=== PATIENT | female | born 1955 | race Caucasian/White ===

== ENCOUNTER 2019-11-18 02:48 | Outpatient (CLI) | payer MEDICARE, OTHER, SELFPAY ==
[2019-11-18 18:16] LABS: SARS-CoV-2 RNA PCR Negative
== END 2019-11-18 02:49 | disposition home or self-care (01) ==
LOC: ANHCOVIDDT 02:48
PROVIDERS: PCP Family Medicine; Visit Provider Internal Medicine Critical Care Medicine
DX: Z01.812 Encounter for preprocedural laboratory examination (principal); Z20.828 Contact with and (suspected) exposure to other viral communicable diseases
CPT/HCPCS: 87635; C9803; U0003

== ENCOUNTER 2019-11-20 08:59 | Outpatient (CLI) | payer MEDICARE, OTHER, SELFPAY ==
--- NOTE | 2019-12-16 10:31 | WPDSLEEPSTUD ---
Sleep Study Date of Study: 11/20/19 Ordering Provider: Rich Panda MD Interpreting Physician: Arianna Eduardo MD Sleep Study Type: Polysomnogram Height: 1.75 m Weight: 112.491 kg Body Mass Index: 36.6 Neck Circumference: 38.1 cm Lyons: 7 Reason for Sleep Study History of obstructive sleep apnea, significant weight loss HST 06/15/2016 AHI 9.7 with moderate snoring and multiple oxygen desaturation with the lowest oxygen saturation of 81%, BMI was 36.6 Sleep History Demi Bear is a 64-year-old female who has a history of obstructive sleep apnea. She has been on CPAP which was successful. Since starting CPAP, she has lost 70 lb, she is exercising and eating a better diet. Her current settings felt too high, were uncomfortable and difficult to tolerate. Dr. Panda decreased her pressure to 5-9 cm in the several weeks before the test which improved her comfort during sleep. She has a family history with her twin sister also being treated for sleep apnea with CPAP. she occasionally snores and occasionally it was loud enough for others to complain about a but this has improved. She occasionally has trouble sleeping with a cold. She does not gasp for breath at night. She occasionally wakes up sweating excessively at night. She rarely notices her heart pounding or beating irregularly at night. She rarely falls asleep during the day, never involuntarily or while driving. She does not have loss of muscle tone with strong emotion. She does not have daytime difficulties due to excessive sleepiness. She does not feel paralyzed on waking or falling asleep and does not have vivid dreamlike scenes upon awakening or falling asleep. She has never for a to go to sleep. She denies nightmares. She rarely remembers her dreams. She frequently has racing thoughts. She never feels sad or depressed. She frequently has anxiety. She rarely has muscular tension. She occasionally notices parts of her body jerking, rarely kicks at night. She occasionally has crawling and aching feelings in her legs. She never has leg pain at night. She denies morning jaw pain. she has a mouth guard currently due to occasionally grind her teeth during sleep. She has never bothered by pain during the day, never is awakened by pain at night, never wakes up feeling stiff in the morning with sore achy muscles or pain in the neck and spine. She occasionally has dizziness, fatigue, constipation and she does use and acids regularly. Normal bedtime is between 8:00 p.m. and 9:00 p.m. taking an hour to fall asleep, typically waking 4-7 times at night, staying awake 15-30 minutes. She wakes up to use the bathroom, returns to bed without much difficulty falling asleep She wakes the morning at 5:00 a.m.. Weekend schedule is similar. She does not usually take naps. Most of the time she feels good in the morning. Habits: Never smoked tobacco. Caffeine 2 cups in the morning. No alcohol or recreational drugs. [facility] Past Medical History Medical History Cardiomegaly Chronic viral hepatitis C Cytomegaloviral disease Essential (primary) hypertension Ganglion cyst Ankle 1979 History of colonic diverticulitis Hypertensive heart disease without heart failure Left bundle branch block Obesity (BMI 30.0-34.9) Post-menopausal age 34 Shingles Squamous cell skin cancer Surgical History Surgical History H/O arthroscopy of knee 2013 H/O: hysterectomy 1977 Family History Family History Father Diabetes mellitus Hypertension Family history of elevated blood lipids Family history of cardiovascular disease Mother Family history of glaucoma Family history of gynecological problem Grandparent Hypertension Sibling Family history of malignant neoplasm of breast Social History Social History (Reviewed 12/16/19
[2019-12-16 11:02] VITALS: BMI 36.6
== END 2019-11-20 09:00 | disposition home or self-care (01) ==
LOC: ANHCSM 09:05
PROVIDERS: PCP Family Medicine; Visit Provider Otolaryngology
DX: G47.33 Obstructive sleep apnea (adult) (pediatric) (principal); B18.2 Chronic viral hepatitis C; B25.9 Cytomegaloviral disease, unspecified; I11.0 Hypertensive heart disease with heart failure; I50.9 Heart failure, unspecified; K57.30 Diverticulosis of large intestine without perforation or abscess without bleeding; E66.9 Obesity, unspecified
CPT/HCPCS: 95810

== ENCOUNTER → 2020-05-06 09:23 | Outpatient (CLI) | payer MEDICARE, SELFPAY ==
--- NOTE | ~2020-05-06 | XR_ITS ---
EXAMINATION: XR hip BI wo pelvis INDICATION: Bilateral hip pain TECHNIQUE: Two views of each hip are obtained. COMPARISON: None available FINDINGS: Bone alignment is normal. There is no fracture. The soft tissues are unremarkable. IMPRESSION: 1. No acute osseous abnormality. Reviewed, dictated and finalized at location A.
== END ==
PROVIDERS: PCP Family Medicine; Visit Provider Family Medicine
DX: M25.551 Pain in right hip (principal); M25.552 Pain in left hip
CPT/HCPCS: 73521

== ENCOUNTER 2020-11-20 13:44 | Outpatient (CLI) | payer MEDICARE, SELFPAY ==
--- NOTE | ~2020-11-20 | DEXA_ITS ---
Bone Density Report Name: Demi Bear Age: 65 Sex: Female Ethnicity: White Date of : 1955 Indication: postmenopausal; hysterectomy; Referring Provider: LINDSEY GLEASON Study: Bone densitometry was performed. Exam Date: November 20, 2020 Accession number: [id number] Bone Density: Region BMD T-score Z-score Classification AP Spine (L1-L4) 0.914 -1.2 0.7 Osteopenia Femoral Neck (Left) 0.629 -2.0 -0.4 Osteopenia Total Hip (Left) 0.770 -1.4 -0.1 Osteopenia Total Hip Bilateral Avg 0.761 -1.5 -0.2 Osteopenia Femoral Neck (Right) 0.600 -2.2 -0.6 Osteopenia Total Hip (Right) 0.751 -1.6 -0.2 Osteopenia World Health Organization criteria for BMD impression classify patients as: Normal (T-score at or above -1.0), Osteopenia (T-score between -1.0 and -2.5), or Osteoporosis (T-score at or below -2.5). 10-year Fracture Risk(1): Major Osteoporotic Fracture 11% Hip Fracture 1.9% Reported Risk Factors: [place] (), Neck BMD=0.600, BMI=33.2 (1) FRAX(R) Version 3.08. Fracture probability calculated for an untreated patient. Fracture probability may be lower if the patient has received treatment. Clinical Information Provided by Patient: Has used the following medications: Vitamin D Has the following medical conditions: Hysterectomy Patient maximum height was 69 Menopause Age: 22 Drinks caffeinated beverages Onset of menses at age 11 Number of children 0 Impression: The patient has low bone mass, based on the Right Femoral Neck T-score. The patient has an estimated ten-year risk of hip fracture of 1.9% and an estimated ten-year risk of major fracture of 11%, based on the WHO FRAX algorithm. Discussion: BONE DENSITY IS LOW AT ONE OR MORE SKELETAL SITES. This patient's lowest T-score is low at one or more skeletal sites. It meets the World Health Organization's (WHO) criteria for ?low bone mass? (T-score between -1.0 and -2.5). The patient's 10-year risk of fracture as calculated by FRAX is less than the threshold where pharmacological therapy is recommended by the National Osteoporosis Foundation (NOF). However, all treatment decisions require clinical judgment and consideration of individual patient factors, including patient preferences, comorbidities, previous drug use, risk factors not captured in the FRAX model (e.g., frailty, falls, vitamin D deficiency, increased bone turnover, interval significant decline in bone density) and possible under or overestimation of fracture risk by FRAX. The patient should follow a healthful lifestyle (good nutrition with adequate calcium and vitamin D, and appropriate weight-bearing exercise). Follow-Up: Consider repeating this study in 2 to 3 years to reassess this patient's status, or sooner if there is some new clinical indication. Reported by: MILAD on 11/06
--- NOTE | ~2020-11-20 | MM_ITS ---
EXAMINATION: MM screening [facility] BI w raymon HISTORY: Screening TECHNIQUE: Craniocaudal and mediolateral oblique 3-D tomosynthesis images were obtained and synthetic 2-D images were generated. CAD analysis was submitted and interpreted. COMPARISON: Comparison to multiple prior studies sequentially, with oldest reviewed study dated 06/23. BREAST PARENCHYMAL COMPOSITION: Breast composed of scattered areas of fibroglandular density. FINDINGS: There is no evidence of suspicious mass, calcification, or architectural distortion to sugg est malignancy in either breast. There has been no suspicious interval change. IMPRESSION: 1. No mammographic evidence of malignancy. 2. Recommend routine screening mammography in one year. BI-RADS Category 1: Negative Reviewed, dictated and finalized at location A.
== END 2020-11-20 13:45 | disposition home or self-care (01) ==
LOC: ANHIMG 13:46
PROVIDERS: PCP Family Medicine; Visit Provider Family Medicine
DX: Z78.0 Asymptomatic menopausal state (principal); Z12.31 Encounter for screening mammogram for malignant neoplasm of breast; M85.88 Other specified disorders of bone density and structure, other site; M85.852 Other specified disorders of bone density and structure, left thigh; M85.851 Other specified disorders of bone density and structure, right thigh
CPT/HCPCS: 77063; 77067; 77080

== ENCOUNTER → 2021-01-23 00:48 | Outpatient (CLI) | payer MEDICARE, SELFPAY ==
[2021-01-25 20:07] LABS: SARS-CoV-2 RNA PCR Negative
== END ==
PROVIDERS: PCP Family Medicine; Visit Provider Family Medicine
DX: R09.89 Other specified symptoms and signs involving the circulatory and respiratory systems (principal); R05.9 Cough, unspecified; R19.7 Diarrhea, unspecified; Z20.822 Contact with and (suspected) exposure to COVID-19; R51.9 Headache, unspecified
CPT/HCPCS: C9803; U0003; U0005

== ENCOUNTER 2022-01-19 15:52 | Outpatient (CLI) | payer OTHER, SELFPAY ==
--- NOTE | ~2022-01-19 | MM_ITS ---
EXAMINATION: MM screening [facility] BI w raymon HISTORY: Screening TECHNIQUE: Craniocaudal and mediolateral oblique 3-D tomosynthesis images were obtained and synthetic 2-D images were generated. CAD analysis was submitted and interpreted. COMPARISON: Comparison to multiple prior studies sequentially, with oldest reviewed study dated 2012. BREAST PARENCHYMAL COMPOSITION: There are scattered areas of fibroglandular density. FINDINGS: There is no evidence of suspicious mass, calcification, or architectural distortion to sugg est malignancy in either breast. There has been no suspicious interval change. IMPRESSION: 1. No mammographic evidence of malignancy. 2. Recommend routine screening mammography in one year. BI-RADS Category 1: Negative Reviewed, dictated and finalized at location B. [employer]
== END 2022-01-19 15:53 | disposition home or self-care (01) ==
LOC: ANHIMG 15:54
PROVIDERS: PCP Family Medicine; Visit Provider Family Medicine
DX: Z12.31 Encounter for screening mammogram for malignant neoplasm of breast (principal)
CPT/HCPCS: 77063; 77067

== ENCOUNTER 2022-03-29 00:06 | Day surgery (SDC) | payer OTHER, SELFPAY ==
[2022-02-11 12:50] VITALS: BMI 36.9
[2022-03-11 15:34] VITALS: BMI 36.9
--- NOTE | 2022-03-28 15:28 | WPDANESEPPF ---
Anes - Initial Pre Proc Eval Procedure: Operation Date: 03/29/22 07:30 Proposed Procedures p Screening Colonoscopy - Scooby Maxwell MD Date/Time: 03/28/22 15:28 Surgeon: Scooby Maxwell MD Pre Op Diagnosis: Hx of Polyps Patient Data Age: 66 Gender: F Height: 1.75 m Weight: 113.5 kg Allergies Allergy/AdvReac Type Severity Reaction Status Date / Time hydrocodone AdvReac Severe VOMITING Verified 03/29/22 06:15 AND ITCHING meperidine AdvReac Severe VOMITING Verified 03/29/22 06:15 AND ITCHING. oxycodone AdvReac Severe VOMITING Verified 03/29/22 06:15 AND ITCHING. Home Medications Medication Instructions Recorded Confirmed Type cetirizine 10 mg tablet (Zyrtec) 10 mg PO DAILY PRN other 12/12/18 03/29/22 History cholecalciferol (vitamin D3) 125 5,000 unit PO DAILY 12/12/18 03/29/22 History mcg (5,000 unit) tablet multivitamin 1 tablet PO DAILY 12/12/18 03/29/22 History omeprazole 10 mg capsule,delayed 10 mg PO DAILY 12/12/18 03/29/22 History release magnesium citrate 100 mg tablet 100 mg PO DAILY 10/28/19 03/29/22 History ascorbic acid (vitamin C) 500 mg 1,000 mg PO DAILY 11/24/20 03/29/22 History tablet spironolactone 25 mg tablet 25 mg PO DAILY #90 tabs 11/22/21 03/29/22 Rx metoprolol tartrate 25 mg tablet 25 mg PO DAILY 02/11/22 03/29/22 History codeine 10 mg-guaifenesin 100 mg/5 5 ml PO Q4H PRN cough #120 mL 03/24/22 03/29/22 Rx mL oral liquid Patient hx anesthesia problems: none Family hx anesthesia problems: none Results Review: All pre-operative results and documents have been reviewed as part of the pre-operative evaluation. [facility] Past Medical History Medical History (Updated 03/28/22 @ 15:29 by Amarjit Angulo DO) Bilateral hip pain Cardiomegaly Chronic viral hepatitis C Cytomegaloviral disease Essential (primary) hypertension Ganglion cyst Ankle 1979 History of colonic diverticulitis Hypertensive heart disease without heart failure Left bundle branch block Obesity (BMI 30.0-34.9) STEPHEN (obstructive sleep apnea) CPAP Osteopenia Post-menopausal age 34 Rhinitis medicamentosa Shingles Squamous cell skin cancer Surgical History Surgical History H/O arthroscopy of knee 2014 H/O: hysterectomy 1977 Family History Family History Father Diabetes mellitus Hypertension Family history of elevated blood lipids Family history of cardiovascular disease Mother Family history of glaucoma Family history of gynecological problem Grandparent Hypertension Sibling Family history of malignant neoplasm of breast Social History Social History (Updated 01/03/22 @ 09:57 by Ramiro Landers MA) Smoking status: Never smoker Alcohol intake: current Alcohol use details: rarely Substance use type: does not use Lack of Transportation: No Lack of Food: Never True Current Housing: I Have Housing Concerned About Future Housing: YES Difficulty Paying Gas/Electric Bills: No Difficulty Paying for Meds: No Currently Unemployed: No Education: Bachelor's Degree Difficulty w/ Childcare or Family Care: No Living arrangements: with family Gender identity (if verbalized by the patient): Female Spiritual care concerns: No Anes - Eval Final PreProcedure Day of Procedure 03/28/22 15:28 Patient weight: obese Heart: regular rate and rhythm Lungs: clear to auscultation Airway: Mallampati scale class II Neurological: alert and oriented Last oral intake: >/= 8 hours ASA classification: III Emergent: no Anesthetic plan: proceed Anesthesia type and monitoring: general GIVS and standard monitoring Results Review: All pre-operative results and documents have been reviewed as part of the pre-operative evaluation. Informed Consent: The patient's anesthetic plan and its attendant risks and benefi
[2022-03-29 06:17] VITALS: BP 160/81; PULSE 82; RESP 16; TEMP 36; O2SAT 100
[2022-03-29] MEDS: LACTATED RINGERS 1,000 ML 150 ML IV CONT (06:20)
--- NOTE | 2022-03-29 07:25 | PM.HPGS ---
History of Present Illness History of Present Illness Consent: Risks, benefits, and alternatives have been discussed and questions answered. Patient agrees to proceed with procedure. Chief complaint: Hx of Polyps Narrative: Demi Bear is a 66 year old female Presents for screening colonoscopy. Patient states that her current weight appetite and bowel movements are normal. Patient denies abdominal pain. She has had no bleeding. Family history noncontributory. Five years ago had a benign colon polyp removed at time of colonoscopy patient returns today for screening colonoscopy. Review of Systems Review of Systems: Review of systems noncontributory. [facility] Past Medical History Medical History (Updated 03/29/22 @ 07:27 by Scooby Maxwell MD) Bilateral hip pain Cardiomegaly Chronic viral hepatitis C Cytomegaloviral disease Essential (primary) hypertension Ganglion cyst Ankle 1979 History of colonic diverticulitis Hypertensive heart disease without heart failure Left bundle branch block Obesity (BMI 30.0-34.9) STEPHEN (obstructive sleep apnea) CPAP Osteopenia Post-menopausal age 34 Rhinitis medicamentosa Shingles Squamous cell skin cancer Surgical History Surgical History H/O arthroscopy of knee 2013 H/O: hysterectomy 1977 Family History Family History Father Diabetes mellitus Hypertension Family history of elevated blood lipids Family history of cardiovascular disease Mother Family history of glaucoma Family history of gynecological problem Grandparent Hypertension Sibling Family history of malignant neoplasm of breast Social History Social History (Updated 01/03/22 @ 09:57 by Ramiro Landers MA) Smoking status: Never smoker Alcohol intake: current Alcohol use details: rarely Substance use type: does not use Lack of Transportation: No Lack of Food: Never True Current Housing: I Have Housing Concerned About Future Housing: YES Difficulty Paying Gas/Electric Bills: No Difficulty Paying for Meds: No Currently Unemployed: No Education: Bachelor's Degree Difficulty w/ Childcare or Family Care: No Living arrangements: with family Gender identity (if verbalized by the patient): Female Spiritual care concerns: No Meds Home Medications and Allergies Home Medications Medication Instructions Recorded Confirmed Type cetirizine 10 mg tablet (Zyrtec) 10 mg PO DAILY PRN other 12/12/18 03/29/22 History cholecalciferol (vitamin D3) 125 5,000 unit PO DAILY 12/12/18 03/29/22 History mcg (5,000 unit) tablet multivitamin 1 tablet PO DAILY 12/12/18 03/29/22 History omeprazole 10 mg capsule,delayed 10 mg PO DAILY 12/12/18 03/29/22 History release magnesium citrate 100 mg tablet 100 mg PO DAILY 10/28/19 03/29/22 History ascorbic acid (vitamin C) 500 mg 1,000 mg PO DAILY 11/24/20 03/29/22 History tablet spironolactone 25 mg tablet 25 mg PO DAILY #90 tabs 11/22/21 03/29/22 Rx metoprolol tartrate 25 mg tablet 25 mg PO DAILY 02/11/22 03/29/22 History codeine 10 mg-guaifenesin 100 mg/5 5 ml PO Q4H PRN cough #120 mL 03/24/22 03/29/22 Rx mL oral liquid Allergies Allergy/AdvReac Type Severity Reaction Status Date / Time hydrocodone AdvReac Severe VOMITING Verified 03/29/22 06:15 AND ITCHING meperidine AdvReac Severe VOMITING Verified 03/29/22 06:15 AND ITCHING. oxycodone AdvReac Severe VOMITING Verified 03/29/22 06:15 AND ITCHING. Vital Signs Vital Signs - 24 hr 03/29/22 06:17 Temperature 96.8 F L Pulse Rate 82 Respiratory Rate 16 Blood Pressure 160/81 H Pulse Oximetry 100 Oxygen Delivery Room Air Exam Narrative: Physical exam reveals patient to be alert. Vital signs stable. HEENT exam is unremarkable. Patient is anicteric. Lungs are clear to auscultation and percussion. Heart is w
[2022-03-29 07:51] VITALS: BP 122/65; PULSE 78; RESP 19; O2SAT 99
[2022-03-29 08:01] VITALS: BP 138/82; PULSE 74; RESP 23; O2SAT 100
[2022-03-29 08:11] VITALS: BP 150/88; PULSE 67; RESP 17; O2SAT 100
== END 2022-03-29 08:15 | disposition home or self-care (01) ==
PROVIDERS: PCP Family Medicine; Visit Provider Internal Medicine Gastroenterology
PROC: 0DJD8ZZ Inspection of Lower Intestinal Tract, Via Natural or Artificial Opening Endoscopic (ICD-10-PCS; CPT 45378; principal; 2022-03-29 07:30)
DX: Z12.11 Encounter for screening for malignant neoplasm of colon (principal); K64.8 Other hemorrhoids; K57.30 Diverticulosis of large intestine without perforation or abscess without bleeding; Z86.010 Personal history of colon polyps; B18.2 Chronic viral hepatitis C; I11.9 Hypertensive heart disease without heart failure; G47.33 Obstructive sleep apnea (adult) (pediatric); I44.7 Left bundle-branch block, unspecified; M85.80 Other specified disorders of bone density and structure, unspecified site; E66.9 Obesity, unspecified; Z68.37 Body mass index [BMI] 37.0-37.9, adult
CPT/HCPCS: 45378; J2704; J7120

== ENCOUNTER → 2023-03-13 15:22 | Outpatient (CLI) | payer OTHER, SELFPAY ==
--- NOTE | ~2023-03-13 | XR_ITS ---
XR foot LT min 3V DATE: 03/13/2023 15:34 INDICATION: Left foot injury TECHNIQUE: 4 views COMPARISON: None FINDINGS: Prominent plantar calcaneal enthesopathy. There is mild calcification along the distal aspe ct of the Achilles tendon. Mild osteophytic change at the first metatarsophalangeal and some interphalangeal joints. No fracture , dislocation, periosteal reaction or bone destruction is detected. No erosive change is noted. IMPRESSION: Plantar calcaneal enthesopathy; mild distal Achilles tendon calcification No fracture or dislocation Mild osteoarthritis Reviewed, dictated and finalized at location B. [employer]ING [employer] IMPRESSION: Plantar calcaneal enthesopathy; mild distal Achilles tendon calcifi cation No fracture or dislocation Mild osteoarthritis
== END ==
PROVIDERS: PCP Nurse Practitioner Family; Visit Provider Nurse Practitioner Family
DX: S99.922A Unspecified injury of left foot, initial encounter (principal); X58.XXXA Exposure to other specified factors, initial encounter; M19.072 Primary osteoarthritis, left ankle and foot; M77.32 Calcaneal spur, left foot
CPT/HCPCS: 73630

== ENCOUNTER 2023-06-15 13:45 | Outpatient (CLI) | payer OTHER, SELFPAY ==
--- NOTE | ~2023-06-15 | DEXA_ITS ---
Bone Density Report Name: CARLOS ÁLVAREZ Age: 67 Sex: Female Ethnicity: White Date of : 1955 Indication: osteopenia; height loss; hysterectomy; secondary osteoporosis; Referring Provider: LINDSEY GLEASON Study: Bone densitometry was performed. Exam Date: June 15, 2023 Accession number: [id number] Bone Density: Region BMD T-score Z-score Classification AP Spine(L1-L4) 0.921 -1.1 0.9 Osteopenia Femoral Neck (Left) 0.716 -1.2 0.6 Osteopenia Total Hip (Left) 0.855 -0.7 0.8 Normal Femoral Neck (Right) 0.696 -1.4 0.4 Osteopenia Total Hip (Right) 0.832 -0.9 0.6 Normal Total Hip Mean 0.843 -0.8 0.7 Normal World Health Organization criteria for BMD impression classify patients as: Normal (T-score at or above -1.0), Osteopenia (T-score between -1.0 and -2.5), or Osteoporosis (T-score at or below -2.5). 10-year Fracture Risk(1): Major Osteoporotic Fracture 8.6% Hip Fracture 1.0% Reported Risk Factors: [place] (), Neck BMD=0.696, BMI=36.8, secondary osteoporosis (1) FRAX(R) Version 3.08. Fracture probability calculated for an untreated patient. Fracture probability may be lower if the patient has received treatment. Previous Exams: Region Exam Age BMD T-score BMD Change BMD Change Date g/cm2 vs Baseline vs Previous AP Spine (L1-L4) 06/15/2023 67 0.921 -1.1 0.007 (0.7%)# 0.007 (0.7%)# 11/20/2020 65 0.914 -1.2 Total Hip(Left) 06/15/2023 67 0.855 -0.7 0.086 (11.1%)# 0.086 (11.1%)# 11/20/2020 65 0.770 -1.4 Total Hip(Right) 06/15/2023 67 0.832 -0.9 0.081 (10.8%)# 0.081 (10.8%)# 11/20/2020 65 0.751 -1.6 *Denotes significance at 95% confidence level, LSC for AP Spine = 0.022 g/cm2, LSC for Total Hip = 0.027 g/cm2 # Denotes dissimilar scan types or analysis methods Clinical Information Provided by Patient: Has secondary osteoporosis Has used the following medications: Vitamin D Has the following medical conditions: Hysterectomy Patient maximum height was 69.5 Menopause Age: 22 Drinks caffeinated beverages Onset of menses at age 11 Number of children 0 Impression: The patient has low bone mass, based on the Right Femoral Neck T-score. The patient has an estimated ten-year risk of hip fracture of 1% and an estimated ten-year risk of major fracture of 8.6%, based on the WHO FRAX algorithm. No significant bone loss was observed. Discussion: BONE DENSITY IS LOW AT ONE OR MORE SKELETAL S
== END 2023-06-15 13:46 | disposition home or self-care (01) ==
LOC: ANHIMG 13:46
PROVIDERS: PCP Family Medicine; Visit Provider Family Medicine
DX: M85.89 Other specified disorders of bone density and structure, multiple sites (principal)
CPT/HCPCS: 77080

== ENCOUNTER 2023-07-28 08:01 | Outpatient (CLI) | payer OTHER, SELFPAY ==
--- NOTE | ~2023-07-28 | MM_ITS ---
EXAMINATION: MM screening [facility] BI w raymon HISTORY: Screening TECHNIQUE: Craniocaudal and mediolateral oblique 3-D tomosynthesis images were obtained and synthetic 2-D images were generated. CAD analysis was submitted and interpreted. COMPARISON: Comparison to multiple prior studies sequentially, with oldest reviewed study dated 04/2016. BREAST PARENCHYMAL COMPOSITION: Not dense: There are scattered areas of fibroglandular density. FINDINGS: There is no evidence of suspicious mass, calcification, or architectural distortion to sugg est malignancy in either breast. There has been no suspicious interval change. IMPRESSION: 1. No mammographic evidence of malignancy. 2. Recommend routine screening mammography in one year. BI-RADS Category 1: Negative Reviewed, dictated and finalized at location B.
== END 2023-07-28 08:02 | disposition home or self-care (01) ==
PROVIDERS: PCP Family Medicine; Visit Provider Family Medicine
DX: Z12.31 Encounter for screening mammogram for malignant neoplasm of breast (principal)
CPT/HCPCS: 77063; 77067

== ENCOUNTER 2024-07-29 07:22 | Outpatient (CLI) | payer OTHER, SELFPAY ==
--- NOTE | ~2024-07-29 | MM_ITS ---
EXAMINATION: MM screening [facility] BI w raymon HISTORY: Screening mammogram, family history of breast cancer in her sister. TECHNIQUE: Craniocaudal and mediolateral oblique 3-D tomosynthesis images were obtained and synthetic 2-D images were generated. CAD analysis was submitted and interpreted. COMPARISON: 07/28/2023, 01/19/2022, 11/20/2020 BREAST PARENCHYMAL COMPOSITION:Not Dense. There are scattered areas of fibroglandular density. FINDINGS: No suspicious mass, calcification, or architectural distortion are identified in either anastacia ast to suggest malignancy. There has been no suspicious interval change. IMPRESSION: No mammographic evidence of malignancy. Recommend routine screening mammography in one year. BI-RADS Category 1: Negative Reviewed, dictated and finalized at location .
== END 2024-07-29 07:23 | disposition home or self-care (01) ==
PROVIDERS: PCP Family Medicine; Visit Provider Family Medicine
DX: Z12.31 Encounter for screening mammogram for malignant neoplasm of breast (principal)
CPT/HCPCS: 77063; 77067

== ENCOUNTER 2024-11-18 13:20 | Outpatient (CLI) | payer OTHER, SELFPAY ==
--- NOTE | ~2024-11-18 | CT_ITS ---
EXAMINATION: CT abdomen pelvis w con DATE: 11/18/2024 13:52 INDICATION: Unspecified abdominal pain. TECHNIQUE: Computed tomography (CT) of the abdomen and pelvis was performed with 100 mL Omnipaque 350 intravenous contrast. Automated exposure control and iterative reconstruction technique were employed. The dose-length product was 1394.72 mGy-cm. COMPARISON: CT abdomen 07/21/2003 FINDINGS: The visualized portions of lung bases demonstrate mild atelectasis. No pleural effusion. The heart size is normal. No pericardial effusion. There is a small sliding hiatal hernia. There is a 9 mm cyst in the liver. There are gallstones in the gallbladder, which is normal in size. The spleen, pancreas, and adrenal glands are normal. There is cortical thinning of the kidneys. There are cysts in the kidneys measuring up to 15 mm on the right. There are scattered diverticula in the colon. There is wall thickening of the sigmoid colon with adjacent fat stranding centered at a diverticulum, consistent with diverticulitis. There are no dilated loops of bowel. The appendix is not visualized. There are no pathologically enlarged lymph nodes. There is no free intraperitoneal fluid. There is moderate lower lumbar spondylosis. There is mild thoracic spondylosis. IMPRESSION: 1. Sigmoid diverticulitis. No perforation or abscess. 2. Small sliding hiatal hernia. Reviewed, dictated and finalized at location E.
[2024-11-18 13:46] LABS: Estimated Glomerular Filt Rate 32
--- OUTSIDE RECORDS SUMMARY | 2024-11-18 14:39 | XMS_ITS | Clinical Summary ---
Author Organization [facility] Address [address] [place] [address] Care Team Providers Care State Trooper Name Role Phone Unavailable Primary Care Provider Unavailabl e Source Comments [facility],non-owned Affiliates and Associated Physician Practices is amultiple site organization consisting of ambulatory clinics and hospital sitesin [place], [place], [place] and [place]. This disclosure is being madepursuant to the Care Everywhere program and may not contain all information available regarding this patient. Last updated 17.[facility] [employer] Social History Tobacco Use Types Packs/Day Years Used Date Smoking Tobacco: Never Assessed Comments Unknown Sex and Gender Information Value Date Recorded Sex Assigned at Not on file Legal Sex Female 2:32 PM [employer]TERN[employer] AR[employer] Gender Identity Not on file Sexual Orientation Not on file Plan of Treatment Health Maintenance Due Date Last Done Comments BONE DENSITY TESTING 1955 COLOGUARD (AGES 45-75) - COL ON CA SCREENING 1955 COLON MONITORING 1955 COLONOSCOPY - COLON CA SCREENING 1955 CT COLONOGRAPHY - COLON CA SCREENING 1955 Colorectal Cancer Screening 1955 FIT - COLON CA SCREENING 1955 FLEX SIG - COLON CA SCREENING 1955 LIPID TESTING 1955 MAMMOGRAM 1955 HEPATITIS C SCREENING 09/06/1971 DTAP/TDAP/TD VACCINES (1 - Tdap) 1972 PNEUMOCOCCAL VACCINE 50+ (1 of 1 - PCV) 09/11/2003 ZOSTER VACCINE (1 of 2) 09/11/2003 DEPRESSION SCREENING 02/07/2024 COVID-19 VACCINE ( - 2023-2 5 season) 2024 INFLUENZA VACCINE (#1) 2024 Respiratory Syncytial Virus (RSV) Vaccine Pt: or over 60 yrs (1 - 1-dose 75+ series) 2028 HEPATITIS B VACCINE Aged Out No longe r eligible based on patient's age to complete this topic HIB VACCINE Aged Out No longer eligi ble based on patient's age to complete this topic HPV VACCINE Aged Out No longer eligi ble based on patient's age to complete this topic MENINGOCOCCAL (Group B) VACC INE SHARED DECISION-MAKING Aged Out No longer eligibl e based on patient's age to complete this topic MENINGOCOCCAL GROUPS A/C/Y/W VACCINE Aged Out No longer eligible b ased on patient's age to complete this topic
== END 2024-11-18 13:21 | disposition home or self-care (01) ==
PROVIDERS: PCP Family Medicine; Visit Provider Nurse Practitioner Family
DX: K57.32 Diverticulitis of large intestine without perforation or abscess without bleeding (principal); K44.9 Diaphragmatic hernia without obstruction or gangrene
CPT/HCPCS: 74177; Q9967

== ENCOUNTER 2024-11-25 09:56 | Outpatient (CLI) | payer OTHER, SELFPAY ==
[2024-11-25 13:10] LABS: Anion Gap 10 mmol/L (4-12); Blood Urea Nitrogen 29 mg/dL (7-17); Calcium 9.5 mg/dL (8.4-10.2); Carbon Dioxide 24 mmol/L (22-30); Chloride 102 mmol/L (98-107); Estimated Glomerular Filt Rate 35; Glucose 103 mg/dL (65-110); Potassium 4.6 mmol/L (3.4-5.0); Sodium 136 mmol/L (137-145)
== END 2024-11-25 09:57 | disposition home or self-care (01) ==
LOC: ANHGOSHLAB 09:57
PROVIDERS: PCP Family Medicine; Visit Provider Nurse Practitioner Family
DX: N18.30 Chronic kidney disease, stage 3 unspecified (principal)
CPT/HCPCS: 36415; 80048

== ENCOUNTER 2024-12-04 16:01 | Outpatient (CLI) | payer OTHER, SELFPAY ==
--- NOTE | ~2024-12-04 | XR_ITS ---
EXAMINATION: XR foot LT min 3V, 12/04/2024 16:10 CDT HISTORY: LATERAL PLANTAR SURFACE LT FOOT PAIN x3 WKS COMPARISON: No comparisons available. Findings: No acute fracture or malalignment. No significant degenerative changes. Soft tissues unremarkable. Impression: No acute fracture or malalignment. Reviewed, dictated and finalized at location P. Impression: No acute fracture or malalignment.
== END 2024-12-04 16:02 | disposition home or self-care (01) ==
LOC: MICIMG 16:02
PROVIDERS: PCP Family Medicine; Visit Provider Nurse Practitioner Family
DX: M79.672 Pain in left foot (principal)
CPT/HCPCS: 73630